=== PATIENT | female | born 1980 | race Caucasian/White ===

== ENCOUNTER 2021-04-18 19:54 | Emergency (ER) | payer MEDICARE ==
[~2021-04-18] VITALS: Ht 152.4 cm; Wt 99.8 kg
[~2021-04-18 19:54] MED LIST: BENTYL 20 MG TA20 M1 PO; BISACODYL SUPP10 MG RECTAL; CLONAZEPAM 1 MG1 M1 PO; CYMBALTA60 MG PO; DOXYCYCLINE 10100 MG PO; TOPAMAX50 MG PO; VERAPAMIL ER180 MG PO; ZOFRAN4 MG PO
[2021-04-18] MEDS ORDERED: REMERON30 MG PO (20:10)
[2021-04-18 21:41] LABS: URINE BILIRUBIN NEGATIVE (Negative); URINE BLOOD NEGATIVE (Negative); URINE CLARITY CLEAR; URINE COLOR YELLOW; URINE GLUCOSE-RANDOM NEGATIVE (Negative); URINE KETONES NEGATIVE (Negative); URINE LEUKOCYTES-REFLEX NEGATIVE (Negative); URINE NITRITE-REFLEX NEGATIVE (Negative); URINE PROTEIN NEGATIVE (Negative); URINE SPECIFIC GRAVITY 1.015 (1.005-1.030); URINE UROBILINOGEN 0.2 E.U./dl (0.2-1.0)
[2021-04-18 21:50] LABS: AMP/METHAMP Negative (Negative); BARBITURATES Negative (Negative); BENZODIAZEPINES Negative (Negative); COCAINE Negative (Negative); METHADONE Negative (Negative); OPIATES Negative (Negative); PCP Negative (Negative); THC POSITIVE (Negative)
[2021-04-18] MEDS ORDERED: BUTALB-APAP-CA1 EACH PO (22:44)
[2021-04-18 22:52] VITALS: BP 180/106
== END 2021-04-18 22:52 | disposition home or self-care (01) ==
LOC: M.ERS 19:54
PROVIDERS: Emergency Medicine
DX: G43.909 Migraine, unspecified, not intractable, without status migrainosus (principal); R03.0 Elevated blood-pressure reading, without diagnosis of hypertension; R11.2 Nausea with vomiting, unspecified; Z90.710 Acquired absence of both cervix and uterus; Z79.899 Other long term (current) drug therapy

== ENCOUNTER 2021-06-14 20:24 | Emergency (ER) | payer MEDICARE ==
[~2021-06-14] VITALS: Ht 165.1 cm; Wt 99.8 kg
[~2021-06-14 20:24] MED LIST changes: +BUTALB-APAP-CA1 EACH PO; +REMERON30 MG PO
[2021-06-14] MEDS ORDERED: TOPROL XL100 MG PO (20:29)
[2021-06-14] MEDS ORDERED: CLONAZEPAM 0.50.5 M1 PO (20:30)
[2021-06-14 21:30] LABS: URINE BILIRUBIN NEGATIVE (Negative); URINE BLOOD TRACE (Negative); URINE CLARITY CLEAR; URINE COLOR YELLOW; URINE GLUCOSE-RANDOM NEGATIVE (Negative); URINE KETONES NEGATIVE (Negative); URINE LEUKOCYTES-REFLEX NEGATIVE (Negative); URINE NITRITE-REFLEX NEGATIVE (Negative); URINE PROTEIN NEGATIVE (Negative); URINE SPECIFIC GRAVITY >= 1.030 (1.005-1.030); URINE UROBILINOGEN 0.2 E.U./dl (0.2-1.0)
[2021-06-14 21:36] LABS: ABSOLUTE BASOPHILS 0.1 thou/uL (0.0-0.2); ABSOLUTE EOSINOPHILS 0.1 thou/uL (0.0-0.7); ABSOLUTE LYMPHOCYTES 2.7 thou/uL (0.8-5.3); ABSOLUTE MONOCYTES 0.5 thou/uL (0.0-1.2); ABSOLUTE NEUTROPHILS 6.2 thou/uL (1.6-8.1); BASOPHILS 0.8 %; EOSINOPHILS 1.3 %; HEMOGLOBIN 13.8 gm/dL (12.0-15.0); LYMPHOCYTES 28.4 %; MCH 30.2 pg (26.0-34.0); MCHC 32.9 g/dL (28.0-37.0); MCV 91.9 fL (80.0-100.0); MONOCYTES 4.7 %; MPV 8.3 fl. (7.2-11.1); NUCLEATED RBCS 0 /100WBC; PLATELET COUNT* 219 thou/uL (150-400); POLYS 64.8 %; RBC 4.57 mil/uL (4.20-5.00); RDW-CV 13.9 % (10.5-14.5); WBC 9.6 thou/uL (4.0-11.0)
[2021-06-14 22:10] LABS: CALCIUM 9.1 mg/dL (8.5-10.1); CREATININE 0.9 mg/dL (0.6-1.3); POTASSIUM 3.7 mmol/L (3.5-5.1)
[2021-06-14 22:14] LABS: ALBUMIN 4.5 g/dL (3.4-5.0); TOTAL BILIRUBIN 0.3 mg/dL (<0.1-1.0); TOTAL PROTEIN 7.5 g/dL (6.4-8.2)
[2021-06-14] MEDS ORDERED: IBUPROFEN 800800 MG PO (23:33)
[2021-06-14] MEDS ORDERED: ULTRAM 50MG TAB50 MG PO (23:33)
[2021-06-14] MEDS ORDERED: ZOFRAN ODT4 MG PO (23:33)
[2021-06-14 23:50] VITALS: BP 168/101
== END 2021-06-14 23:50 | disposition still patient (30) ==
LOC: M.ERS 20:24
PROVIDERS: Physician Assistant
DX: N23 Unspecified renal colic (principal); F32.9 Major depressive disorder, single episode, unspecified; Z90.710 Acquired absence of both cervix and uterus; Z79.899 Other long term (current) drug therapy; Z88.1 Allergy status to other antibiotic agents